=== PATIENT | female | born 1980 | race African-American/Black ===

== ENCOUNTER 2017-07-21 23:38 | Emergency (ER) | payer BC ==
[2017-07-22] MEDS ORDERED: Fentanyl 100 MCG/2 ML VIAL ONE (00:05)
[2017-07-22 00:13] LABS: #Basophils 0.1 thou/uL (0.0-0.2); #Eosinphils 0.2 thou/uL (0.0-0.7); #Lymphocytes 5.5 thou/uL (1.20-3.40); #Neutrophils 6.5 thou/uL (1.40-6.50); %Basophils 0.9 % (0.0-1.0); %Eosinophils 1.7 % (0.0-10.0); %Lymphocytes 40.9 % (21.0-51.0); %Monocytes 7.7 % (0.0-10.0); %Neutrophils 48.8 % (42.0-75.0); Hemoglobin 12.9 g/dL (12.0-16.0); Mean Corpuscular Volume 79.4 fl (81.0-99.0); Mean Platelet Volume 7.2 fL (7.4-10.4); Platelet Count 445 thou/uL (130-400); RBC Distribution Width 12.9 % (11.5-14.5); Red Blood Cell (RBC) Count 4.77 mill/uL (4.20-5.40); White Blood Cell (WBC) Count 13.4 thou/uL (4.8-10.8)
[2017-07-22] MEDS ORDERED: Ondansetron ODT 8 MG TAB ONE (00:13)
[2017-07-22 00:22] LABS: INR-International Normal Ratio 1.1; Prothrombin Time 14.3 SEC (12.0-14.7)
[2017-07-22 00:24] LABS: D-Dimer Test 0.81 *mcg/mL (0.27-0.43)
[2017-07-22 00:36] LABS: ALT (SGPT) 20 U/L (8-55); AST (SGOT) 13 U/L (5-34); Albumin 4.4 g/dL (3.5-5.0); Alkaline Phosphatase 143 U/L (40-150); Anion Gap 14 mmol/L (10-20); BUN (Urea Nitrogen) 11 mg/dL (7.0-18.7); Bilirubin, Total 0.4 mg/dL (0.2-1.2); CK (CPK) 177 U/L (29-168); Calc. Creatinine Clearance 0 mL/min (70-130); Calcium 9.9 mg/dL (7.8-10.44); Carbon Dioxide 24 mmol/L (22-29); Chloride 105 mmol/L (98-107); Estimated GFR-MDRD Greater than 90; Globulin 4.3 g/dL (2.4-3.5); Glucose 157 mg/dL (70-105); Lipase 15 U/L (8-78); Magnesium 2.2 mg/dL (1.6-2.6); Protein, Total 8.7 g/dL (6.0-8.3); Sodium 140 mmol/L (136-145)
[2017-07-22 00:39] LABS: Potassium 2.9 mmol/L (3.5-5.1)
[2017-07-22 00:41] LABS: CKMB 0.9 ng/mL (0-6.6); Troponin I Less than 0.010 ng/mL (< 0.028)
[2017-07-22 01:26] LABS: Bilirubin Negative (Negative); Blood, Urine Negative (Negative); Clarity CLEAR (Clear); Glucose, Urine (Dipstick) Negative (Negative); Leukocyte Negative (Negative); Nitrite Negative (Negative); Protein, Urine (Dipstick) Negative (Neg-Trace); Urobilinogen 0.2 mg/dL (0.2-1.0); pH, Urine 7.5 (5.0-9.0)
[2017-07-22] MEDS ORDERED: Potassium Chloride 20 MEQ TAB ONE (01:26)
[2017-07-22 01:37] LABS: Amphetamine Not Detected (NotDetected); Barbiturates Screen Not Detected (NotDetected); Benzodiazepine Screen Not Detected (NotDetected); Cocaine Metabolite Screen Not Detected (NotDetected); Medtox Control Line Valid? VALID (VALID); Medtox Reader # READER 4; Methadone Not Detected (NotDetected); Methamphetamine Not Detected (NotDetected); Opiate Screen Not Detected (NotDetected); Oxycodone Screen Not Detected (NotDetected); Phencyclidine (PCP) Not Detected (NotDetected); THC/Cannabinoid Screen Not Detected (NotDetected); Tricyclic Screen Not Detected (NotDetected)
[2017-07-22 01:40] LABS: Specific Gravity, Urine 1.054 (1.002-1.036)
[2017-07-22 02:16] LABS: Lactic Acid 1.8 mmol/L (0.5-2.2)
--- NOTE | 2017-07-22 08:15 | RAD ---
CHEST 1 VIEW: Date: 07/21/17 HISTORY: Chest pain. COMPARISON: 05/07/10. FINDINGS: Cardiac silhouette is magnified by projection. Shallow inspiration accentuates pulmonary markings. Me diastinum is midline. No lobar consolidation or evidence of pneumothorax. 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 IMPRESSION: No active cardiopulmonary abnormalities are demonstrated. POS: [facility]
--- NOTE | 2017-07-22 08:50 | CT ---
PRELIMINARY REPORT/[facility]/EMERGENTY AFTER-HOURS PROCEDURE CT Angiography Chest With Intravenous Contrast CLINICAL HISTORY: 37 years old, female; Pain; Chest pain; Type not specified; Abdominal pain; Generalized TECHNIQUE: Axial computed tomographic angiography images of the chest with intravenous contrast using pulmonary embolism protocol. CONTRAST: 100 mL of ISOVUE administered intravenously. COMPARISON: No relevant prior studies available. FINDINGS: Mildly limited due to motion artifact Pulmonary arteries: No definite pulmonary embolism. Aorta: No acute findings. No thoracic aortic aneurysm. Lungs: Mild subsegmental atelectasis versus scarring No mass. No consolidation. Pleural space: No significant effusion. No pneumothorax. Heart: No cardiomegaly. No significant pericardial effusion. No evidence of RV dysfunction. Bones/joints: No acute fracture. No dislocation. Soft tissues: Unremarkable. Lymph nodes: Unremarkable. No enlarged lymph nodes. IMPRESSION: No evidence for aortic dissection. No pulmonary embolism. CT Angiography Abdomen With Intravenous Contrast TECHNIQUE: Axial computed tomographic angiography images of the abdomen with intravenous contrast. CONTRAST: 100 mL of ISOVUE administered intravenously. COMPARISON: No relevant prior studies available. FINDINGS: Mildly limited due to motion artifact Aorta: No acute findings. No abdominal aortic aneurysm. No dissection. Celiac trunk and mesenteric arteries: No acute findings. No occlusion or significant stenosis. Renal arteries: No acute findings. No occlusion or significant stenosis. Lung bases: Unremarkable. No mass. No consolidation. Liver: Unremarkable. No mass. Gallbladder and bile ducts: Unremarkable. No calcified stones. No ductal dilation. Pancreas: Unremarkable. No ductal dilation. No mass. Spleen: Unremarkable. No splenomegaly. Adrenals: Unremarkable. No mass. Kidneys and ureters: Question mild heterogeneity of the left kidney versus artifact No hydronephrosis. No solid mass. Stomach and bowel: No obstruction. Question mild mucosal thickening. Intraperitoneal space: Unremarkable. No significant fluid collection. No free air. Bones/joints: No acute fracture. No dislocation. Soft tissues: Unremarkable. No mass. Lymph nodes: Unremarkable. No enlarged lymph nodes. IMPRESSION: No acute findings in the arteries of the abdomen. Question mild small bowel thickening. Correlate for enteritis Question mild heterogeneity to the left kidney versus artifact. Consider correlation with urinalysis as clinically indicated to assess for pyelonephritis Thank you for allowing us to participate in the care of your patient. Dictated and Authenticated by: Segun Coyle MD 07/22/2017 12:55 AM Central Time ([place] & [place]) FINAL REPORT CT ANGIO CHEST AND ABDOMEN PERFORMED WITH IV CONTRAST ENHANCEMENT AND 3D RECONSTRUCTIONS: Date: 07/22/17 HISTORY: Chest pain. Abdominal distention. FINDINGS: The lungs are clear of any infiltrative process. There are atelectatic changes in the left lower lobe . There are no pulmonary nodules identified. No significant mediastinal or hilar lymphadenopathy. The thoracic aorta is normal in caliber. No sign s of dissection. There is good proximal pulmonary artery opacification. No proximal pulmonary embolus is seen. CT angio of abdomen with contrast with 3D reconstructions obtained. The liver, spleen, pancreas, and gallbladder regions are unremarkable given angiographic phase exam. Right and left adrenal glands, and right and left kidneys are normal in size and appearance. There is some respiratory artifact present through the kidneys. There is no significant periaortic or mesente kendy adenopathy. The thoracic aorta is normal in caliber. No signs of aneurysm or dissection. IMPRESSION: 1. Subsegmental atelectasis left lung base. 2. No evidence of aortic aneurysm or dissection. This report is in agreement with the preliminary report issued by [facility]. POS: [facility]
[2017-07-22] MEDS ORDERED: ISOVUE-370 76%-LOCM 1 ML ONE (15:47)
--- NOTE | 2017-09-02 14:27 | EKG ---
Test Reason : Blood Pressure : / mmHG Vent. Rate : 124 BPM Atrial Rate : 124 BPM P-R Int : 136 ms QRS Dur : 082 ms QT Int : 328 ms P-R-T Axes : 052 062 038 degrees QTc Int : 471 ms Sinus tachycardia Nonspecific ST and T wave abnormality Abnormal ECG Reconfirmed by AMPARO CURIEL ([id number]), supervising editor trailer TELLY GAXIOLA ([id number]) on 09/02/2017 2:27:07 PM Referred By: Confirmed By:AMPARO CURIEL
== END 2017-07-22 02:59 | disposition home or self-care (01) ==
LOC: ERS 23:38
DX: K52.9 Noninfective gastroenteritis and colitis, unspecified (principal); E11.9 Type 2 diabetes mellitus without complications; I10 Essential (primary) hypertension; M19.90 Unspecified osteoarthritis, unspecified site; F41.9 Anxiety disorder, unspecified; Z79.899 Other long term (current) drug therapy
CPT/HCPCS: 36415; 71045; 71275; 80053; 80306; 81003; 82550; 82553; 83605; 83690; 83735; 83880; 84443; 84484; 85025; 85379; 85610; 85730; 86850; 86900; 86901; 93005; 94760; 96361; 96374; J3010

== ENCOUNTER 2017-08-16 08:58 | Outpatient (CLI) | payer BC | END 2017-08-16 08:59 | disposition home or self-care (01) | LOC: BICULT 08:58 | PROVIDERS: ATTEND Urology | DX: R10.84 Generalized abdominal pain (principal) | CPT/HCPCS: 76700 ==

== ENCOUNTER 2017-11-22 00:57 | Emergency (ER) | payer BC ==
[2017-11-22 01:56] LABS: #Basophils 0.1 thou/uL (0.0-0.2); #Eosinphils 0.4 thou/uL (0.0-0.7); #Lymphocytes 3.5 thou/uL (1.20-3.40); #Monocytes 0.6 thou/uL (0.11-0.59); #Neutrophils 6.4 thou/uL (1.40-6.50); %Basophils 0.8 % (0.0-1.0); %Eosinophils 3.6 % (0.0-10.0); %Lymphocytes 31.9 % (21.0-51.0); %Monocytes 5.1 % (0.0-10.0); %Neutrophils 58.7 % (42.0-75.0); Hemoglobin 12.6 g/dL (12.0-16.0); Mean Corpuscular HGB CONC 36.3 g/dL (32.0-36.0); Mean Corpuscular Hemoglobin 28.3 pg (27.0-31.0); Platelet Count 362 thou/uL (130-400); RBC Distribution Width 12.5 % (11.5-14.5); Red Blood Cell (RBC) Count 4.47 mill/uL (4.20-5.40); White Blood Cell (WBC) Count 10.9 thou/uL (4.8-10.8)
[2017-11-22 01:58] LABS: Bilirubin Negative (Negative); Blood, Urine Negative (Negative); Clarity CLEAR (Clear); Glucose, Urine (Dipstick) Negative (Negative); Leukocyte Negative (Negative); Nitrite Negative (Negative); Protein, Urine (Dipstick) Negative (Neg-Trace); Specific Gravity, Urine 1.004 (1.002-1.036); Urobilinogen 0.2 mg/dL (0.2-1.0); pH, Urine 7.5 (5.0-9.0)
[2017-11-22] MEDS ORDERED: Lidocaine Viscous Sol 2% 15 ml UD Cup ONE (02:11)
[2017-11-22] MEDS ORDERED: Mag-Al 1200 mg/1200 mg/30 ML UDCUP ONE (02:11)
[2017-11-22 02:12] LABS: ALT (SGPT) 16 U/L (8-55); AST (SGOT) 14 U/L (5-34); Albumin 4.1 g/dL (3.5-5.0); Alkaline Phosphatase 152 U/L (40-150); Anion Gap 13 mmol/L (10-20); BUN (Urea Nitrogen) 8 mg/dL (7.0-18.7); Bilirubin, Total 0.3 mg/dL (0.2-1.2); Calc. Creatinine Clearance 0 mL/min (70-130); Calcium 9.8 mg/dL (7.8-10.44); Carbon Dioxide 25 mmol/L (22-29); Chloride 107 mmol/L (98-107); Estimated GFR-MDRD 88; Glucose 156 mg/dL (70-105); Potassium 3.8 mmol/L (3.5-5.1); Protein, Total 8.1 g/dL (6.0-8.3); Sodium 141 mmol/L (136-145)
[2017-11-22 02:15] LABS: Troponin I Less than 0.010 ng/mL (< 0.028)
--- NOTE | 2017-11-22 07:40 | RAD ---
PORTABLE CHEST 1 VIEW: DATE: 11/22/17. TIME: 12:44 a.m. HISTORY: Left-sided chest pain. FINDINGS: Comparison is made with the exam of 07/21/17. The heart size is normal. The lungs are well expanded without lobar consolidation, pneumothoraces, o r pleural effusions. IMPRESSION: No radiographic evidence of acute cardiopulmonary process. POS: [facility]
== END 2017-11-22 03:10 | disposition home or self-care (01) ==
LOC: ERS 00:57
DX: K21.9 Gastro-esophageal reflux disease without esophagitis (principal); E11.9 Type 2 diabetes mellitus without complications; D64.9 Anemia, unspecified; M19.90 Unspecified osteoarthritis, unspecified site; F41.9 Anxiety disorder, unspecified
CPT/HCPCS: 36415; 71045; 80053; 81003; 82553; 83690; 84484; 85025; 93005

== ENCOUNTER 2021-08-23 09:52 | Emergency (ER) | payer BC | END 2021-08-23 10:35 | disposition home or self-care (01) | LOC: ERS 09:52 | DX: R07.89 Other chest pain (principal); J45.909 Unspecified asthma, uncomplicated; E11.9 Type 2 diabetes mellitus without complications; M19.90 Unspecified osteoarthritis, unspecified site; D64.9 Anemia, unspecified; I10 Essential (primary) hypertension | CPT/HCPCS: 71045; 93005 ==

== ENCOUNTER 2023-03-18 13:34 | Outpatient (CLI) | payer BC ==
[2023-03-18 15:07] LABS: Anion Gap 12 mmol/L (10-20); BUN (Urea Nitrogen) 13 mg/dL (7.0-18.7); Calc. Creatinine Clearance 0 mL/min (70-130); Calcium 9.1 mg/dL (7.8-10.44); Carbon Dioxide 28 mmol/L (22-29); Chloride 104 mmol/L (98-107); Estimated GFR 100; Glucose 83 mg/dL (70-105); Potassium 3.4 mmol/L (3.5-5.1); Sodium 141 mmol/L (136-145)
== END 2023-03-18 13:35 | disposition home or self-care (01) ==
LOC: LABBT 13:34
PROVIDERS: ATTEND Neurological Surgery
DX: Z01.818 Encounter for other preprocedural examination (principal); M51.36 Other intervertebral disc degeneration, lumbar region; M48.062 Spinal stenosis, lumbar region with neurogenic claudication
CPT/HCPCS: 80048; 93005; 93010

== ENCOUNTER 2023-03-25 07:47 | Day surgery (SDC) | payer BC ==
[2023-03-18 14:08] VITALS: BMI 40.8
[2023-03-25] MEDS ORDERED: Lidocaine 1% MPF 2 ML VIAL ONE (08:30)
[2023-03-25] MEDS ORDERED: CEFAZOLIN 2 GM VIAL ONE ×2 (08:31→14:36)
[2023-03-25] MEDS ORDERED: Sodium Chloride 0.9% 100 ML ONE ×2 (08:31→14:36)
[2023-03-25] MEDS ORDERED: EPINEPHrine 1 MG/ML VIAL ONE (08:55)
[2023-03-25] MEDS ORDERED: Bupivacaine PF 0.5% 30 ML VIAL ONE (08:56)
[2023-03-25] MEDS ORDERED: Thrombin 5000 UNITS/5 ML VIAL ONE (08:56)
[2023-03-25] MEDS ORDERED: Dexamethasone 4 mg/ml Vial ONE (09:02)
[2023-03-25] MEDS ORDERED: Rocuronium Bromide 10 MG/ML (10ML VIAL) ONE ×2 (09:02→09:39)
[2023-03-25] MEDS ORDERED: Ondansetron PF 4 MG/2 ML Vial ONE ×2 (09:02→09:39)
[2023-03-25] MEDS ORDERED: Lidocaine 1% PF 5 ML VIAL ONE ×2 (09:02→09:39)
[2023-03-25] MEDS ORDERED: fentaNYL PF 100 MCG/2 ML SYRINGE ONE ×2 (09:03→10:02)
[2023-03-25] MEDS ORDERED: PROPOFOL 20 ML ONE (09:03)
[2023-03-25] MEDS ORDERED: SUGAMMADEX SODIUM 200 MG/2 ML VIAL ONE (09:03)
[2023-03-25] MEDS ORDERED: Midazolam HCl 2 mg/2 ml Vial ONE (09:26)
[2023-03-25] MEDS ORDERED: PROPOFOL 200 MG/20 ML VIAL ONE (09:39)
[2023-03-25] MEDS ORDERED: PHENYLEPHRINE-NS 100 MCG/ML 10 ML SYRINGE ONE ×2 (09:39→11:11)
[2023-03-25] MEDS ORDERED: Esmolol 100 MG/10 ML VIAL ONE ×2 (09:39→09:48)
[2023-03-25] MEDS ORDERED: Metoprolol Tartrate 5 MG/5 ML VIAL ONE ×2 (09:39→10:15)
[2023-03-25] MEDS ORDERED: Dexamethasone 20 MG/5 ML VIAL ONE (09:39)
[2023-03-25] MEDS ORDERED: HYDROmorphone 2 MG/ML VIAL ONE (11:37)
[2023-03-25] MEDS ORDERED: fentaNYL 50 mcg/mL 1 mL Vial ONE (13:42)
[2023-03-25] MEDS ORDERED: HYDROcodone/Acetaminophen 5/325 mg Tablet ONE (14:41)
[2023-03-25] MEDS ORDERED: Cyclobenzaprine 10 MG TAB ONE (15:04)
[2023-03-25] MEDS ORDERED: Ondansetron ODT 4 MG TAB ONE (16:23)
== END 2023-03-25 16:53 | disposition home or self-care (01) ==
LOC: SDC 07:47
PROVIDERS: ATTEND Neurological Surgery
PROC: 0SG30AJ Fusion of Lumbosacral Joint with Interbody Fusion Device, Posterior Approach, Anterior Column, Open Approach (ICD-10-PCS; principal; 2023-03-25)
PROC: 0SG30K1 Fusion of Lumbosacral Joint with Nonautologous Tissue Substitute, Posterior Approach, Posterior Column, Open Approach (ICD-10-PCS; principal; 2023-03-25)
DX: M51.17 Intervertebral disc disorders with radiculopathy, lumbosacral region (principal); M48.07 Spinal stenosis, lumbosacral region; M19.90 Unspecified osteoarthritis, unspecified site; F41.9 Anxiety disorder, unspecified; E11.9 Type 2 diabetes mellitus without complications; I10 Essential (primary) hypertension; Z79.84 Long term (current) use of oral hypoglycemic drugs; Z79.899 Other long term (current) drug therapy
CPT/HCPCS: C1713; C1889; J0171; J1100; J1170; J2250; J2405; J2704; J3010; J3490; Q0162; S0020